=== PATIENT | male | born 1960 | race Hispanic/Latino ===

== ENCOUNTER → 2021-06-07 | Day surgery (SDC) | payer MEDICARE ==
[~2021-06-07] MED LIST: ACETAMINOPHEN-1 EAC4 PO; ALBUTEROL0.63 MG/3 NEB; AMITRIPTYLINE H10 MG PO; ASPIRIN81 MG PO; ATORVASTATIN CA20 MG PO; ATROPINE SULFATE 1 MG/ML VIAL ONE; BUPIVACAINE HCL 0.5% INJ 30 ML VIAL INJ ONE; CARVEDILOL6.25 MG PO; CLINDAMYCIN HC300 MG PO; CLOPIDOGREL75 MG PO; COLACE100 MG PO; DEXAMETHASONE SOD PHOS INJ 4 MG/ML SDV ONE; FENTANYL CITRATE/PF 100MCG/2 ML INJ ONE; KETOROLAC TROMETHAMINE 30 MG/ML VIAL ONE; LEVEMIR100 UNIT/1 SC; LIDOCAINE HCL 2% LOCAL INJ 5 ML SDV VIAL INJ ONE; MUPIROCIN 2% OINT 22 GM TUBE ONE; ONDANSETRON HCL INJ 2MG/ML 2ML 2 MG/ML VIAL ONE; POVIDONE IODINE 0.05% 0.05 % ML PO ONE; PROPOFOL IV EMULSION 10 MG/ML 20 ML VIAL ONE; PROTONIX20 MG PO; RENAGEL800 MG PO; RETACRIT2000 UNIT/ SC; SEVOFLURANE INHAL SOLN 250 ML PEN BTL ONE; SODIUM CHLORIDE 0.9% 500ML 500 ML ONE; SODIUM CHLORIDE 0.9% 50ML 50 ML ONE; TRADJENTA5 MG PO
[2021-06-07 08:43] LABS: BASOPHILS % 0.3 % (0.0-1.0); EOSINOPHILS # (AUTO) 0.2 (0.0-0.4); EOSINOPHILS % 2.7 % (0.0-6.0); HEMATOCRIT 26.1 % (38.2-49.6); LYMPHOCYTES # (AUTO) 1.2 (1.0-3.2); LYMPHOCYTES % 19.9 % (18.0-39.1); MEAN CORPUSCULAR HEMOGLOBIN 31.7 pg (28-32); MEAN CORPUSCULAR HGB CONC 30.7 g/dL (31-35); MEAN CORPUSCULAR VOLUME 103.6 fL (81-99); MONOCYTES # (AUTO) 0.6 (0.2-0.8); MONOCYTES % 9.8 % (4.4-11.3); NEUTROPHILS # (AUTO) 3.9 (2.1-6.9); PLATELET COUNT 168 x10e3/uL (140-360); RED BLOOD COUNT 2.52 x10e6/uL (4.3-5.7); RED CELL DISTRIBUTION WIDTH 16.5 % (11.7-14.4)
[2021-06-07 09:01] LABS: ANION GAP 16.8 mmol/L (8-16); CALCIUM 8.2 mg/dL (8.4-10.2); CREATININE, SERUM 4.18 mg/dL (0.72-1.25); POTASSIUM 4.8 mmol/L (3.5-5.1)
[2021-06-07 09:02] LABS: INR 1.03; PROTHROMBIN TIME 14.4 seconds (11.9-14.5)
[2021-06-07 09:03] LABS: PARTIAL THROMBOPLASTIN TIME 45.5 seconds (23.8-35.5)
[2021-06-07 13:02] VITALS: BP 112/67
== END | disposition home or self-care (01) ==
LOC: OR 07:20
PROVIDERS: ATTEND Plastic Surgery
DX: I96 Gangrene, not elsewhere classified (principal); M86.141 Other acute osteomyelitis, right hand; M86.641 Other chronic osteomyelitis, right hand; G47.33 Obstructive sleep apnea (adult) (pediatric); E11.22 Type 2 diabetes mellitus with diabetic chronic kidney disease; I12.0 Hypertensive chronic kidney disease with stage 5 chronic kidney disease or end stage renal disease; N18.6 End stage renal disease; I69.354 Hemiplegia and hemiparesis following cerebral infarction affecting left non-dominant side; I25.810 Atherosclerosis of coronary artery bypass graft(s) without angina pectoris; I25.2 Old myocardial infarction; K21.9 Gastro-esophageal reflux disease without esophagitis; Z88.8 Allergy status to other drugs, medicaments and biological substances; Z88.6 Allergy status to analgesic agent; Z91.013 Allergy to seafood; Z99.2 Dependence on renal dialysis; Z79.02 Long term (current) use of antithrombotics/antiplatelets; Z79.82 Long term (current) use of aspirin; Z79.4 Long term (current) use of insulin; Z79.899 Other long term (current) drug therapy; Z95.1 Presence of aortocoronary bypass graft
CPT/HCPCS: 26910 ×2; 26952; 36415; 71046; 80048; 82948; 85025; 85610; 85730; 88305; 88311; J0461; J0690; J1100; J1885; J2001; J2405; J2704; J3010; J7040; 88304; 88307

== ENCOUNTER → 2021-08-07 | Day surgery (SDC) | payer MEDICARE ==
[~2021-08-07] MED LIST changes: -ATROPINE SULFATE 1 MG/ML VIAL ONE; +BUMETANIDE1 MG PO; +CYMBALTA30 MG PO; -DEXAMETHASONE SOD PHOS INJ 4 MG/ML SDV ONE; +HYDROCODON-ACE1 EAC9 PO; -KETOROLAC TROMETHAMINE 30 MG/ML VIAL ONE; -LIDOCAINE HCL 2% LOCAL INJ 5 ML SDV VIAL INJ ONE; +MIDAZOLAM HCL 2 MG/2 ML VIAL ONE; -ONDANSETRON HCL INJ 2MG/ML 2ML 2 MG/ML VIAL ONE; +PERCOCET 10-321 EACH PO; +RENVELA0.8 GM PO; -SEVOFLURANE INHAL SOLN 250 ML PEN BTL ONE; -SODIUM CHLORIDE 0.9% 500ML 500 ML ONE; -SODIUM CHLORIDE 0.9% 50ML 50 ML ONE
[2021-08-07 06:42] LABS: BASOPHILS % 0.4 % (0.0-1.0); EOSINOPHILS # (AUTO) 0.3 (0.0-0.4); EOSINOPHILS % 4.9 % (0.0-6.0); HEMATOCRIT 35.6 % (38.2-49.6); HEMOGLOBIN 11.5 g/dL (14.0-18.0); LYMPHOCYTES # (AUTO) 1.4 (1.0-3.2); LYMPHOCYTES % 20.7 % (18.0-39.1); MEAN CORPUSCULAR HEMOGLOBIN 33.9 pg (28-32); MEAN CORPUSCULAR HGB CONC 32.3 g/dL (31-35); MONOCYTES # (AUTO) 0.8 (0.2-0.8); MONOCYTES % 12.1 % (4.4-11.3); NEUTROPHILS # (AUTO) 4.2 (2.1-6.9); NEUTROPHILS % 61.8 % (38.7-80.0); PLATELET COUNT 148 x10e3/uL (140-360); RED BLOOD COUNT 3.39 x10e6/uL (4.3-5.7); RED CELL DISTRIBUTION WIDTH 14.6 % (11.7-14.4)
[2021-08-07 06:55] LABS: INR 1.05; PROTHROMBIN TIME 14.6 seconds (11.9-14.5)
[2021-08-07 06:56] LABS: PARTIAL THROMBOPLASTIN TIME 34.4 seconds (23.8-35.5)
[2021-08-07 07:03] LABS: ANION GAP 19.7 mmol/L (8-16); CALCIUM 9.2 mg/dL (8.4-10.2); CREATININE, SERUM 5.5 mg/dL (0.72-1.25); POTASSIUM 4.7 mmol/L (3.5-5.1)
[2021-08-07] MEDS: SODIUM CHLORIDE 0.9% 500ML 500 ML ONE (07:04)
[2021-08-07 08:10] VITALS: BP 149/70
== END | disposition home or self-care (01) ==
LOC: OR 05:55
PROVIDERS: ATTEND Plastic Surgery
DX: E11.52 Type 2 diabetes mellitus with diabetic peripheral angiopathy with gangrene (principal); I70.268 Atherosclerosis of native arteries of extremities with gangrene, other extremity; M86.141 Other acute osteomyelitis, right hand; M86.641 Other chronic osteomyelitis, right hand; L98.494 Non-pressure chronic ulcer of skin of other sites with necrosis of bone; I25.10 Atherosclerotic heart disease of native coronary artery without angina pectoris; E11.22 Type 2 diabetes mellitus with diabetic chronic kidney disease; I13.2 Hypertensive heart and chronic kidney disease with heart failure and with stage 5 chronic kidney disease, or end stage renal disease; I50.9 Heart failure, unspecified; N18.6 End stage renal disease; Z79.4 Long term (current) use of insulin; Z79.84 Long term (current) use of oral hypoglycemic drugs; Z99.2 Dependence on renal dialysis; Z01.810 Encounter for preprocedural cardiovascular examination; Z86.73 Personal history of transient ischemic attack (TIA), and cerebral infarction without residual deficits; Z79.02 Long term (current) use of antithrombotics/antiplatelets; Z79.82 Long term (current) use of aspirin; Z79.899 Other long term (current) drug therapy
CPT/HCPCS: 36415; 80048; 82948; 85025; 85610; 85730; 88304; 88305; 88311; 93005; J0690; J2250; J3010; J7040

== ENCOUNTER → 2021-08-30 | Day surgery (SDC) | payer MEDICARE ==
[~2021-08-30] MED LIST changes: +ACETAMINOPHEN 1000 MG/100 ML IV ONE; +BUPIVACAINE HCL 0.25% 10ML MPF VIAL INJ ONE; -BUPIVACAINE HCL 0.5% INJ 30 ML VIAL INJ ONE; -FENTANYL CITRATE/PF 100MCG/2 ML INJ ONE; +HYDROCODON-ACE1 EA11 PO; +LIDOCAINE HCL 2% LOCAL INJ 5 ML SDV VIAL INJ ONE; +ROPIVACAINE 0.5% 5 MG/ML 30 ML SDV ONE; +SODIUM CHLORIDE 0.9% 500ML 500 ML ONE
[2021-08-30 08:45] VITALS: BP 110/56
== END | disposition home or self-care (01) ==
LOC: OR 07:05
PROVIDERS: ATTEND Plastic Surgery
DX: I96 Gangrene, not elsewhere classified (principal); M65.841 Other synovitis and tenosynovitis, right hand; G47.33 Obstructive sleep apnea (adult) (pediatric); I69.851 Hemiplegia and hemiparesis following other cerebrovascular disease affecting right dominant side; I69.898 Other sequelae of other cerebrovascular disease; R29.810 Facial weakness; E78.5 Hyperlipidemia, unspecified; I25.810 Atherosclerosis of coronary artery bypass graft(s) without angina pectoris; E11.22 Type 2 diabetes mellitus with diabetic chronic kidney disease; I12.0 Hypertensive chronic kidney disease with stage 5 chronic kidney disease or end stage renal disease; N18.6 End stage renal disease; J98.11 Atelectasis; I51.7 Cardiomegaly; K21.9 Gastro-esophageal reflux disease without esophagitis; Z88.6 Allergy status to analgesic agent; Z88.8 Allergy status to other drugs, medicaments and biological substances; Z01.812 Encounter for preprocedural laboratory examination; Z20.822 Contact with and (suspected) exposure to COVID-19; Z79.82 Long term (current) use of aspirin; Z79.02 Long term (current) use of antithrombotics/antiplatelets; Z79.4 Long term (current) use of insulin; Z99.2 Dependence on renal dialysis; Z95.1 Presence of aortocoronary bypass graft; Z86.718 Personal history of other venous thrombosis and embolism
CPT/HCPCS: 26910; 36415; 82948; 84132; 87071; 87075; 87186; 87205; 88305; 88311; J0131; J0690; J2001; J2250; J2704; J2795; J7040; U0002; 88304

== ENCOUNTER → 2021-11-01 | Outpatient (CLI) | payer MEDICARE ==
[~2021-11-01] MED LIST changes: -ACETAMINOPHEN 1000 MG/100 ML IV ONE; +BUPIVACAINE 0.25% 30ML SDV ONE; -BUPIVACAINE HCL 0.25% 10ML MPF VIAL INJ ONE; -LIDOCAINE HCL 2% LOCAL INJ 5 ML SDV VIAL INJ ONE; +METHADONE HCL5 MG PO; -MIDAZOLAM HCL 2 MG/2 ML VIAL ONE; -POVIDONE IODINE 0.05% 0.05 % ML PO ONE; -PROPOFOL IV EMULSION 10 MG/ML 20 ML VIAL ONE; -ROPIVACAINE 0.5% 5 MG/ML 30 ML SDV ONE; -SODIUM CHLORIDE 0.9% 500ML 500 ML ONE
== END | disposition home or self-care (01) ==
LOC: OR 07:02 → EDSTATUS 08:30 → LAB 12:37
PROVIDERS: ATTEND Plastic Surgery
DX: M86.9 Osteomyelitis, unspecified (principal); Z01.812 Encounter for preprocedural laboratory examination; Z20.822 Contact with and (suspected) exposure to COVID-19; Z53.8 Procedure and treatment not carried out for other reasons
CPT/HCPCS: 0223U; 36415 ×2; 82948

== ENCOUNTER → 2021-11-08 | Day surgery (SDC) | payer MEDICARE ==
[~2021-11-08] MED LIST changes: +FENTANYL CITRATE/PF 100MCG/2 ML INJ ONE; +LIDOCAINE HCL 2% LOCAL INJ 5 ML SDV VIAL INJ ONE; +Morphine 2mg Syringe 2 MG/ML SYR ONE; +ONDANSETRON HCL INJ 2MG/ML 2ML 2 MG/ML VIAL ONE; +POVIDONE IODINE 0.05% 0.05 % ML PO ONE; +PROPOFOL IV EMULSION 10 MG/ML 20 ML VIAL ONE; +SEVOFLURANE INHAL SOLN 250 ML PEN BTL ONE; +SODIUM CHLORIDE 0.9% 500ML 500 ML ONE
[2021-11-08 07:43] LABS: BASOPHILS % 0.3 % (0.0-1.0); EOSINOPHILS # (AUTO) 0.3 (0.0-0.4); EOSINOPHILS % 2.6 % (0.0-6.0); HEMATOCRIT 47.5 % (38.2-49.6); HEMOGLOBIN 15.3 g/dL (14.0-18.0); LYMPHOCYTES # (AUTO) 1.5 (1.0-3.2); LYMPHOCYTES % 14.8 % (18.0-39.1); MEAN CORPUSCULAR HEMOGLOBIN 32.7 pg (28-32); MEAN CORPUSCULAR HGB CONC 32.2 g/dL (31-35); MEAN CORPUSCULAR VOLUME 101.5 fL (81-99); MONOCYTES # (AUTO) 1.1 (0.2-0.8); MONOCYTES % 10.5 % (4.4-11.3); NEUTROPHILS # (AUTO) 7.1 (2.1-6.9); NEUTROPHILS % 71.1 % (38.7-80.0); PLATELET COUNT 212 x10e3/uL (140-360); RED BLOOD COUNT 4.68 x10e6/uL (4.3-5.7); RED CELL DISTRIBUTION WIDTH 14.8 % (11.7-14.4)
[2021-11-08 07:59] LABS: INR 0.92; PROTHROMBIN TIME 13.2 seconds (11.9-14.5)
[2021-11-08 08:00] LABS: PARTIAL THROMBOPLASTIN TIME 30.7 seconds (23.8-35.5)
[2021-11-08 08:04] LABS: ANION GAP 18.8 mmol/L (8-16); CALCIUM 8.9 mg/dL (8.4-10.2); CREATININE, SERUM 6.12 mg/dL (0.72-1.25); POTASSIUM 4.8 mmol/L (3.5-5.1)
[2021-11-08 10:40] VITALS: BP 126/66
== END | disposition home or self-care (01) ==
LOC: OR 06:14
PROVIDERS: ATTEND Plastic Surgery
DX: M86.141 Other acute osteomyelitis, right hand (principal); M86.641 Other chronic osteomyelitis, right hand; I73.9 Peripheral vascular disease, unspecified; I25.2 Old myocardial infarction; E11.22 Type 2 diabetes mellitus with diabetic chronic kidney disease; I12.0 Hypertensive chronic kidney disease with stage 5 chronic kidney disease or end stage renal disease; N18.6 End stage renal disease; K21.9 Gastro-esophageal reflux disease without esophagitis; Z88.6 Allergy status to analgesic agent; Z01.812 Encounter for preprocedural laboratory examination; Z20.822 Contact with and (suspected) exposure to COVID-19; Z79.82 Long term (current) use of aspirin; Z79.4 Long term (current) use of insulin; Z79.02 Long term (current) use of antithrombotics/antiplatelets; Z79.899 Other long term (current) drug therapy; Z99.2 Dependence on renal dialysis; Z99.81 Dependence on supplemental oxygen; Z86.73 Personal history of transient ischemic attack (TIA), and cerebral infarction without residual deficits
CPT/HCPCS: 0223U; 26910; 36415 ×2; 80048; 82948; 85025; 85610; 85730; 88305; 88311; J0690; J2270; J3010; J7040; 88304; J2001; J2405

== ENCOUNTER → 2022-04-04 | Outpatient (CLI) | payer MEDICARE ==
[2022-04-02 11:34] LABS: BASOPHILS % 0.6 % (0.0-1.0); EOSINOPHILS # (AUTO) 0.4 (0.0-0.4); EOSINOPHILS % 7.6 % (0.0-6.0); HEMATOCRIT 48.2 % (38.2-49.6); HEMOGLOBIN 14.7 g/dL (14.0-18.0); LYMPHOCYTES # (AUTO) 1.2 (1.0-3.2); LYMPHOCYTES % 22.7 % (18.0-39.1); MEAN CORPUSCULAR HEMOGLOBIN 31.4 pg (28-32); MEAN CORPUSCULAR HGB CONC 30.5 g/dL (31-35); MONOCYTES # (AUTO) 0.7 (0.2-0.8); MONOCYTES % 13.4 % (4.4-11.3); NEUTROPHILS % 55.3 % (38.7-80.0); PLATELET COUNT 177 x10e3/uL (140-360); RED BLOOD COUNT 4.68 x10e6/uL (4.3-5.7); RED CELL DISTRIBUTION WIDTH 14.6 % (11.7-14.4)
[2022-04-02 11:51] LABS: ANION GAP 23.2 mmol/L (8-16); CALCIUM 8.6 mg/dL (8.4-10.2); CREATININE, SERUM 7.02 mg/dL (0.72-1.25); POTASSIUM 5.2 mmol/L (3.5-5.1)
[~2022-04-04] MED LIST changes: -BUPIVACAINE 0.25% 30ML SDV ONE; -FENTANYL CITRATE/PF 100MCG/2 ML INJ ONE; +ISOSORBIDE DINI20 MG PO; -LIDOCAINE HCL 2% LOCAL INJ 5 ML SDV VIAL INJ ONE; -MUPIROCIN 2% OINT 22 GM TUBE ONE; -Morphine 2mg Syringe 2 MG/ML SYR ONE; -ONDANSETRON HCL INJ 2MG/ML 2ML 2 MG/ML VIAL ONE; -POVIDONE IODINE 0.05% 0.05 % ML PO ONE; -PROPOFOL IV EMULSION 10 MG/ML 20 ML VIAL ONE; -SEVOFLURANE INHAL SOLN 250 ML PEN BTL ONE; -SODIUM CHLORIDE 0.9% 500ML 500 ML ONE
== END ==
LOC: RAD 07:30 → EDSTATUS 09:30
PROVIDERS: ATTEND Plastic Surgery
DX: Z01.818 Encounter for other preprocedural examination (principal); L60.0 Ingrowing nail; I96 Gangrene, not elsewhere classified; Z53.8 Procedure and treatment not carried out for other reasons
CPT/HCPCS: 36415; 80048; 85025; 93005

== ENCOUNTER → 2022-05-16 | Day surgery (SDC) | payer MEDICARE ==
[~2022-05-16] MED LIST changes: +BUPIVACAINE HCL 0.5% INJ 30 ML VIAL INJ ONE; +EPHEDRINE SULFATE INJ 50 MG/ML VIAL ONE; +FENTANYL CITRATE/PF 100MCG/2 ML INJ ONE; +LIDOCAINE 2%/ EPINEPHRINE 20ML MDV ONE; +LIDOCAINE HCL 2% LOCAL INJ 5 ML SDV VIAL INJ ONE; +MIDAZOLAM HCL 2 MG/2 ML VIAL ONE; +MUPIROCIN 2% OINT 22 GM TUBE ONE; +ONDANSETRON HCL INJ 2MG/ML 2ML 2 MG/ML VIAL ONE; +POVIDONE IODINE 0.05% 0.05 % ML PO ONE; +PROPOFOL IV EMULSION 10 MG/ML 20 ML VIAL ONE; +SEVOFLURANE INHAL SOLN 250 ML PEN BTL ONE; +SODIUM CHLORIDE 0.9% 500ML 500 ML ONE
[2022-05-16 07:44] LABS: BASOPHILS # (AUTO) 0.1 (0.0-0.1); BASOPHILS % 0.5 % (0.0-1.0); EOSINOPHILS # (AUTO) 0.2 (0.0-0.4); EOSINOPHILS % 1.7 % (0.0-6.0); HEMATOCRIT 52.2 % (38.2-49.6); HEMOGLOBIN 15.8 g/dL (14.0-18.0); LYMPHOCYTES % 20.8 % (18.0-39.1); MEAN CORPUSCULAR HEMOGLOBIN 31.5 pg (28-32); MEAN CORPUSCULAR HGB CONC 30.3 g/dL (31-35); MEAN CORPUSCULAR VOLUME 104.2 fL (81-99); MONOCYTES # (AUTO) 1.1 (0.2-0.8); MONOCYTES % 10.9 % (4.4-11.3); NEUTROPHILS # (AUTO) 6.3 (2.1-6.9); NEUTROPHILS % 65.5 % (38.7-80.0); PLATELET COUNT 190 x10e3/uL (140-360); RED BLOOD COUNT 5.01 x10e6/uL (4.3-5.7); RED CELL DISTRIBUTION WIDTH 16.7 % (11.7-14.4)
[2022-05-16 07:55] LABS: INR 1.01; PROTHROMBIN TIME 13.5 seconds (11.9-14.5)
[2022-05-16 08:05] LABS: ANION GAP 22.2 mmol/L (8-16); CREATININE, SERUM 5.63 mg/dL (0.72-1.25); POTASSIUM 5.2 mmol/L (3.5-5.1)
[2022-05-16 10:55] VITALS: BP 97/60
== END | disposition home or self-care (01) ==
LOC: OR 06:53
PROVIDERS: ATTEND Plastic Surgery
DX: I96 Gangrene, not elsewhere classified (principal); M86.9 Osteomyelitis, unspecified; L60.0 Ingrowing nail; G47.33 Obstructive sleep apnea (adult) (pediatric); E11.22 Type 2 diabetes mellitus with diabetic chronic kidney disease; I12.0 Hypertensive chronic kidney disease with stage 5 chronic kidney disease or end stage renal disease; N18.6 End stage renal disease; K21.9 Gastro-esophageal reflux disease without esophagitis; I25.810 Atherosclerosis of coronary artery bypass graft(s) without angina pectoris; E78.5 Hyperlipidemia, unspecified; I69.351 Hemiplegia and hemiparesis following cerebral infarction affecting right dominant side; Z89.9 Acquired absence of limb, unspecified; Z88.6 Allergy status to analgesic agent; Z91.013 Allergy to seafood; Z79.02 Long term (current) use of antithrombotics/antiplatelets; Z79.82 Long term (current) use of aspirin; Z79.4 Long term (current) use of insulin; Z79.84 Long term (current) use of oral hypoglycemic drugs; Z79.899 Other long term (current) drug therapy; Z95.1 Presence of aortocoronary bypass graft; Z95.5 Presence of coronary angioplasty implant and graft; Z86.16 Personal history of COVID-19
CPT/HCPCS: 11750; 26951; 36415; 80048; 82948; 85025; 85610; 85730; 88305; 88311; 93005; J0690; J2001; J2250; J2405; J2704; J3010; J7040; 88304

== ENCOUNTER 2022-07-29 13:24 | Inpatient (IN) | payer MEDICARE ==
[~2022-07-29] VITALS: Ht 165.1 cm; Wt 68.0 kg
[~2022-07-29 13:24] MED LIST changes: -BUPIVACAINE HCL 0.5% INJ 30 ML VIAL INJ ONE; -EPHEDRINE SULFATE INJ 50 MG/ML VIAL ONE; -FENTANYL CITRATE/PF 100MCG/2 ML INJ ONE; -LIDOCAINE 2%/ EPINEPHRINE 20ML MDV ONE; -LIDOCAINE HCL 2% LOCAL INJ 5 ML SDV VIAL INJ ONE; -MIDAZOLAM HCL 2 MG/2 ML VIAL ONE; -MUPIROCIN 2% OINT 22 GM TUBE ONE; -ONDANSETRON HCL INJ 2MG/ML 2ML 2 MG/ML VIAL ONE; -POVIDONE IODINE 0.05% 0.05 % ML PO ONE; -PROPOFOL IV EMULSION 10 MG/ML 20 ML VIAL ONE; -SEVOFLURANE INHAL SOLN 250 ML PEN BTL ONE; -SODIUM CHLORIDE 0.9% 500ML 500 ML ONE
[2022-07-29] MEDS ORDERED: Vancomycin IV 1 GM in SODIUM CHLORIDE 0.9% 250ML 250 ML IV ONE (13:45)
[2022-07-29] MEDS ORDERED: SODIUM CHLORIDE FLUSH 10 ML SYR INJ PRN (13:45)
[2022-07-29] MEDS: ONDANSETRON HCL INJ 2MG/ML 2ML 2 MG/ML VIAL IV PRN (15:06)
[2022-07-29 15:07] LABS: BASOPHILS # (AUTO) 0.1 (0.0-0.1); BASOPHILS % 0.3 % (0.0-1.0); EOSINOPHILS # (AUTO) 0.1 (0.0-0.4); EOSINOPHILS % 0.9 % (0.0-6.0); HEMATOCRIT 42.9 % (38.2-49.6); HEMOGLOBIN 13.8 g/dL (14.0-18.0); LYMPHOCYTES # (AUTO) 0.7 (1.0-3.2); LYMPHOCYTES % 4.7 % (18.0-39.1); MEAN CORPUSCULAR HEMOGLOBIN 31.2 pg (28-32); MEAN CORPUSCULAR HGB CONC 32.2 g/dL (31-35); MEAN CORPUSCULAR VOLUME 97.1 fL (81-99); MONOCYTES % 6.5 % (4.4-11.3); NEUTROPHILS # (AUTO) 13.2 (2.1-6.9); NEUTROPHILS % 86.7 % (38.7-80.0); PLATELET COUNT 191 x10e3/uL (140-360); RED BLOOD COUNT 4.42 x10e6/uL (4.3-5.7)
[2022-07-29 15:33] LABS: ALANINE AMINOTRANSFERASE 9 IU/L (0-55); ALBUMIN/GLOBULIN RATIO 0.7 (0.8-2.0); ALKALINE PHOSPHATASE 73 IU/L (40-150); ANION GAP 34.7 mmol/L (8-16); BLOOD UREA NITROGEN 93 mg/dL (7-26); BUN/CREATININE RATIO 9 (6-25); CALCIUM 9.1 mg/dL (8.4-10.2); CARBON DIOXIDE 13 mmol/L (22-29); CHLORIDE 90 mmol/L (98-107); CREATININE, SERUM 10.48 mg/dL (0.72-1.25); GLUCOSE 115 mg/dL (74-118); SODIUM 130 mmol/L (136-145)
[2022-07-29 15:35] LABS: POTASSIUM 7.7 mmol/L (3.5-5.1)
[2022-07-29] MEDS ORDERED: ALBUTEROL SULF 0.083% NEB SOLN 3 ML NEB NEB STA (15:41)
[2022-07-29] MEDS ORDERED: SODIUM BICARBONATE 8.4% INJ 50 ML SYR IV STA (15:41)
[2022-07-29] MEDS ORDERED: DEXTROSE 50% SYRINGE 50 ML IV STA (15:41)
[2022-07-29] MEDS ORDERED: INSULIN REGULAR, HUMAN 100 UNIT/1 ML IV ONE (15:45)
[2022-07-29] MEDS ORDERED: SOD POLYSTYRENE SULFONATE SUSP 15 GM/60 ML BTL PO ONE (15:45)
[2022-07-29] MEDS ORDERED: CALCIUM GLUCONATE 10% INJ 13.95 MEQ in SODIUM CHLORIDE 0.9% 100 ML IV ONE (15:45)
[2022-07-29] MEDS ORDERED: SODIUM CHLORIDE 0.9% 1000ML 2,000 ML ONE (16:59)
[2022-07-29] MEDS ORDERED: HYDROCODONE/APAP 5MG-325MG TAB PO PRN (21:30)
[2022-07-29 22:47] VITALS: BP 146/92
[2022-07-30] VITALS (7 sets, daily range): BP systolic 93–156; BP diastolic 54–86
[2022-07-30] MEDS: HYDROCODONE/APAP 10MG-325MG TAB PO PRN ×3 (02:32→11:55)
[2022-07-30] MEDS ORDERED: SODIUM CHLORIDE 0.9% 250ML 250 ML ONE (02:35)
[2022-07-30 06:44] LABS: BASOPHILS # (AUTO) 0.1 (0.0-0.1); BASOPHILS % 0.4 % (0.0-1.0); EOSINOPHILS # (AUTO) 0.3 (0.0-0.4); EOSINOPHILS % 2.1 % (0.0-6.0); HEMATOCRIT 42.9 % (38.2-49.6); LYMPHOCYTES # (AUTO) 0.6 (1.0-3.2); MEAN CORPUSCULAR HEMOGLOBIN 31.2 pg (28-32); MEAN CORPUSCULAR HGB CONC 32.6 g/dL (31-35); MEAN CORPUSCULAR VOLUME 95.5 fL (81-99); MONOCYTES # (AUTO) 1.2 (0.2-0.8); MONOCYTES % 7.4 % (4.4-11.3); NEUTROPHILS # (AUTO) 13.6 (2.1-6.9); NEUTROPHILS % 85.1 % (38.7-80.0); PLATELET COUNT 212 x10e3/uL (140-360); RED BLOOD COUNT 4.49 x10e6/uL (4.3-5.7)
[2022-07-30 07:25] LABS: ALBUMIN/GLOBULIN RATIO 0.7 (0.8-2.0); ANION GAP 31.5 mmol/L (8-16); CALCIUM 9.4 mg/dL (8.4-10.2); CREATININE, SERUM 8.25 mg/dL (0.72-1.25); POTASSIUM 4.5 mmol/L (3.5-5.1)
[2022-07-30] MEDS ORDERED: CARVEDILOL12.5 MG PO (09:21)
[2022-07-30] MEDS ORDERED: AURYXIA210 MG PO (09:21)
[2022-07-30] MEDS ORDERED: BUMETANIDE2 MG PO (09:21)
[2022-07-30] MEDS ORDERED: TRADJENTA5 MG PO (09:21)
[2022-07-30] MEDS ORDERED: AMITRIPTYLINE H10 MG PO (09:21)
[2022-07-30] MEDS ORDERED: CYMBALTA30 MG PO (09:21)
[2022-07-30] MEDS ORDERED: NITROGLYCERIN0.4 MG SL (09:21)
[2022-07-30] MEDS ORDERED: IBUPROFEN200 MG PO (09:21)
[2022-07-30] MEDS ORDERED: NOVOLOG MI100 UNIT/1 SC (09:21)
[2022-07-30] MEDS: Morphine 4mg INJECTION 4 MG/ML INJ IV PRN ×3 (09:56→21:37)
[2022-07-30] MEDS: ONDANSETRON HCL INJ 2MG/ML 2ML 2 MG/ML VIAL IV PRN ×2 (09:56→21:37)
[2022-07-30] MEDS ORDERED: SEVELAMER CARBONATE 800 MG TAB PO SCH (11:30)
[2022-07-30] MEDS: PANTOPRAZOLE SOD 40 MG TABEC PO SCH (11:51)
[2022-07-30] MEDS: CELECOXIB 100 MG CAP PO SCH ×2 (11:51→17:26)
[2022-07-30] MEDS: SEVELAMER CARBONATE 800 MG TAB PO SCH ×2 (11:55→17:27)
[2022-07-30] MEDS ORDERED: SODIUM CHLORIDE 0.9% IV SCH (15:00)
[2022-07-30] MEDS ORDERED: VANCOMYCIN IV SCH (15:00)
[2022-07-30] MEDS: CARVEDILOL 12.5 MG TAB PO SCH (17:00)
[2022-07-30] MEDS ORDERED: ISOSORBIDE DINITRATE 20 MG TAB PO SCH (17:00)
[2022-07-30] MEDS: AMITRIPTYLINE HCL 10 MG TAB PO SCH (17:26)
[2022-07-30] MEDS: DULOXETINE HCL 30 MG DELAYED RELEASE PO SCH (17:27)
[2022-07-30] MEDS: ATORVASTATIN 40 MG TAB PO SCH (21:15)
[2022-07-31] VITALS (8 sets, daily range): BP systolic 102–125; BP diastolic 61–87
[2022-07-31] MEDS: Morphine 4mg INJECTION 4 MG/ML INJ IV PRN (02:02)
[2022-07-31] MEDS: ONDANSETRON HCL INJ 2MG/ML 2ML 2 MG/ML VIAL IV PRN ×2 (02:02→10:30)
[2022-07-31] MEDS ORDERED: ACETAMINOPHEN 1000 MG/100 ML 100 ML IV ONE (06:35)
[2022-07-31] MEDS ORDERED: MUPIROCIN 2% OINT 22 GM TUBE ONE (06:48)
[2022-07-31] MEDS ORDERED: BUPIVACAINE HCL 0.5% INJ 30 ML VIAL INJ ONE (06:49)
[2022-07-31] MEDS: SEVELAMER CARBONATE 800 MG TAB PO SCH ×3 (08:00→17:01)
[2022-07-31] MEDS: CELECOXIB 100 MG CAP PO SCH ×3 (08:00→16:56)
[2022-07-31] MEDS ORDERED: SODIUM CHLORIDE 0.9% 1000ML 2,000 ML ONE (08:57)
[2022-07-31] MEDS: AMITRIPTYLINE HCL 10 MG TAB PO SCH ×3 (09:00→16:58)
[2022-07-31] MEDS: CARVEDILOL 12.5 MG TAB PO SCH ×2 (09:00→16:58)
[2022-07-31] MEDS: DULOXETINE HCL 30 MG DELAYED RELEASE PO SCH ×2 (11:14→16:58)
[2022-07-31] MEDS: PANTOPRAZOLE SOD 40 MG TABEC PO SCH (11:14)
[2022-07-31] MEDS: HYDROCODONE/APAP 10MG-325MG TAB PO PRN ×2 (11:28→17:00)
[2022-07-31] MEDS ORDERED: PROPOFOL IV EMULSION 10 MG/ML 20 ML VIAL ONE (12:40)
[2022-07-31] MEDS ORDERED: SEVOFLURANE INHAL SOLN 250 ML PEN BTL ONE (12:40)
[2022-07-31] MEDS ORDERED: POVIDONE IODINE 0.05% 0.05 % ML PO ONE (12:40)
[2022-07-31] MEDS ORDERED: LIDOCAINE HCL 2% LOCAL INJ 5 ML SDV VIAL INJ ONE (12:40)
[2022-07-31] MEDS ORDERED: ONDANSETRON HCL INJ 2MG/ML 2ML 2 MG/ML VIAL ONE (12:40)
[2022-07-31] MEDS: BALSAM PERU/CASTOR OIL 60 GM OINT...G. TP SCH (16:55)
[2022-07-31] MEDS ORDERED: Vancomycin IV 1 GM in SODIUM CHLORIDE 0.9% 250ML 250 ML IV SCH (18:00)
[2022-07-31] MEDS: ATORVASTATIN 40 MG TAB PO SCH (22:00)
[2022-08-01] VITALS (8 sets, daily range): BP systolic 99–131; BP diastolic 41–90
[2022-08-01] MEDS: HYDROCODONE/APAP 10MG-325MG TAB PO PRN ×5 (02:51→21:23)
[2022-08-01] MEDS: CARVEDILOL 12.5 MG TAB PO SCH ×2 (08:33→17:00)
[2022-08-01] MEDS: AMITRIPTYLINE HCL 10 MG TAB PO SCH ×2 (08:33→18:06)
[2022-08-01] MEDS: PANTOPRAZOLE SOD 40 MG TABEC PO SCH (08:34)
[2022-08-01] MEDS: CELECOXIB 100 MG CAP PO SCH ×2 (08:34→18:06)
[2022-08-01] MEDS: SEVELAMER CARBONATE 800 MG TAB PO SCH ×3 (08:34→18:06)
[2022-08-01] MEDS: DULOXETINE HCL 30 MG DELAYED RELEASE PO SCH ×2 (08:34→18:06)
[2022-08-01] MEDS ORDERED: LOSARTAN POTASS25 MG PO (12:51)
[2022-08-01] MEDS ORDERED: SPIRONOLACTONE25 MG PO (12:51)
[2022-08-01] MEDS: Morphine 4mg INJECTION 4 MG/ML INJ IV PRN (13:53)
[2022-08-01] MEDS: BALSAM PERU/CASTOR OIL 60 GM OINT...G. TP SCH (15:55)
[2022-08-01] MEDS: ATORVASTATIN 40 MG TAB PO SCH (21:23)
[2022-08-02] VITALS (8 sets, daily range): BP systolic 112–157; BP diastolic 73–88
[2022-08-02] MEDS: HYDROCODONE/APAP 10MG-325MG TAB PO PRN ×2 (02:46→18:04)
[2022-08-02] MEDS: ONDANSETRON HCL INJ 2MG/ML 2ML 2 MG/ML VIAL IV PRN ×2 (05:37→16:18)
[2022-08-02] MEDS: DULOXETINE HCL 30 MG DELAYED RELEASE PO SCH ×2 (08:14→16:52)
[2022-08-02] MEDS: CARVEDILOL 12.5 MG TAB PO SCH ×2 (08:14→16:52)
[2022-08-02] MEDS: SEVELAMER CARBONATE 800 MG TAB PO SCH ×3 (08:14→16:52)
[2022-08-02] MEDS: AMITRIPTYLINE HCL 10 MG TAB PO SCH ×2 (08:14→16:52)
[2022-08-02] MEDS: PANTOPRAZOLE SOD 40 MG TABEC PO SCH (08:14)
[2022-08-02] MEDS: CELECOXIB 100 MG CAP PO SCH ×2 (08:14→16:52)
[2022-08-02] MEDS ORDERED: SODIUM CHLORIDE 0.9% 1000ML 1,000 ML ONE (09:10)
[2022-08-02 16:48] LABS: BASOPHILS # (AUTO) 0.1 (0.0-0.1); BASOPHILS % 0.3 % (0.0-1.0); EOSINOPHILS # (AUTO) 0.3 (0.0-0.4); HEMATOCRIT 40.1 % (38.2-49.6); HEMOGLOBIN 12.7 g/dL (14.0-18.0); LYMPHOCYTES # (AUTO) 0.5 (1.0-3.2); LYMPHOCYTES % 3.4 % (18.0-39.1); MEAN CORPUSCULAR HEMOGLOBIN 30.3 pg (28-32); MEAN CORPUSCULAR HGB CONC 31.7 g/dL (31-35); MEAN CORPUSCULAR VOLUME 95.7 fL (81-99); MONOCYTES % 6.2 % (4.4-11.3); NEUTROPHILS # (AUTO) 13.7 (2.1-6.9); NEUTROPHILS % 86.5 % (38.7-80.0); PLATELET COUNT 184 x10e3/uL (140-360); RED BLOOD COUNT 4.19 x10e6/uL (4.3-5.7)
[2022-08-02 17:06] LABS: ANION GAP 26.5 mmol/L (8-16); CALCIUM 9.5 mg/dL (8.4-10.2); CREATININE, SERUM 6.2 mg/dL (0.72-1.25); POTASSIUM 4.5 mmol/L (3.5-5.1)
[2022-08-02] MEDS: ATORVASTATIN 40 MG TAB PO SCH (20:47)
[2022-08-03] VITALS (7 sets, daily range): BP systolic 106–152; BP diastolic 44–90
[2022-08-03] MEDS: HYDROCODONE/APAP 10MG-325MG TAB PO PRN (04:01)
[2022-08-03] MEDS: PANTOPRAZOLE SOD 40 MG TABEC PO SCH (09:15)
[2022-08-03] MEDS: DULOXETINE HCL 30 MG DELAYED RELEASE PO SCH ×2 (09:15→16:28)
[2022-08-03] MEDS: CELECOXIB 100 MG CAP PO SCH (09:15)
[2022-08-03] MEDS: AMITRIPTYLINE HCL 10 MG TAB PO SCH (09:16)
[2022-08-03] MEDS: CARVEDILOL 12.5 MG TAB PO SCH ×2 (09:16→16:29)
[2022-08-03] MEDS: BALSAM PERU/CASTOR OIL 60 GM OINT...G. TP SCH ×2 (09:18→09:27)
[2022-08-03] MEDS: SEVELAMER CARBONATE 800 MG TAB PO SCH ×3 (09:18→16:48)
[2022-08-03] MEDS: MUPIROCIN 2% OINT 22 GM TUBE TOP SCH (09:25)
[2022-08-03] MEDS: CLOPIDOGREL BISULFATE 75 MG TAB PO SCH (11:29)
[2022-08-03] MEDS: ASPIRIN 81 MG CHEW TAB PO SCH (11:29)
[2022-08-03] MEDS: KETOROLAC TROMETHAMINE 30 MG/ML VIAL IV PRN (14:32)
[2022-08-03] MEDS: ATORVASTATIN 40 MG TAB PO SCH (21:00)
[2022-08-04] VITALS (7 sets, daily range): BP systolic 105–124; BP diastolic 50–88
[2022-08-04] MEDS: PANTOPRAZOLE SOD 40 MG TABEC PO SCH (07:30)
[2022-08-04] MEDS: SEVELAMER CARBONATE 800 MG TAB PO SCH ×3 (08:00→16:29)
[2022-08-04] MEDS: DULOXETINE HCL 30 MG DELAYED RELEASE PO SCH ×2 (08:46→16:29)
[2022-08-04] MEDS: BALSAM PERU/CASTOR OIL 60 GM OINT...G. TP SCH (08:46)
[2022-08-04] MEDS: ASPIRIN 81 MG CHEW TAB PO SCH (08:46)
[2022-08-04] MEDS: MUPIROCIN 2% OINT 22 GM TUBE TOP SCH (08:46)
[2022-08-04] MEDS: CLOPIDOGREL BISULFATE 75 MG TAB PO SCH (08:46)
[2022-08-04] MEDS: CARVEDILOL 12.5 MG TAB PO SCH ×2 (09:00→17:00)
[2022-08-04] MEDS: DEXTROSE 50% SYRINGE 50 ML IV PRN (10:26)
[2022-08-04] MEDS ORDERED: DEXTROSE 5%/0.9% SOD CHL 1,000 ML IV ONE (10:45)
[2022-08-04 14:52] LABS: BASOPHILS # (AUTO) 0.1 (0.0-0.1); BASOPHILS % 0.7 % (0.0-1.0); EOSINOPHILS # (AUTO) 0.3 (0.0-0.4); EOSINOPHILS % 2.6 % (0.0-6.0); HEMATOCRIT 37.7 % (38.2-49.6); HEMOGLOBIN 11.7 g/dL (14.0-18.0); LYMPHOCYTES # (AUTO) 0.6 (1.0-3.2); LYMPHOCYTES % 4.5 % (18.0-39.1); MEAN CORPUSCULAR HEMOGLOBIN 30.8 pg (28-32); MEAN CORPUSCULAR VOLUME 99.2 fL (81-99); MONOCYTES # (AUTO) 0.9 (0.2-0.8); MONOCYTES % 6.8 % (4.4-11.3); NEUTROPHILS # (AUTO) 10.5 (2.1-6.9); NEUTROPHILS % 83.8 % (38.7-80.0); PLATELET COUNT 158 x10e3/uL (140-360); RED CELL DISTRIBUTION WIDTH 14.7 % (11.7-14.4)
[2022-08-04] MEDS: ATORVASTATIN 40 MG TAB PO SCH (21:00)
[2022-08-05] VITALS (8 sets, daily range): BP systolic 122–146; BP diastolic 76–87
[2022-08-05] MEDS: PANTOPRAZOLE SOD 40 MG TABEC PO SCH (07:30)
[2022-08-05] MEDS: SEVELAMER CARBONATE 800 MG TAB PO SCH ×3 (07:49→17:00)
[2022-08-05] MEDS: CARVEDILOL 12.5 MG TAB PO SCH ×2 (08:57→17:00)
[2022-08-05] MEDS: ASPIRIN 81 MG CHEW TAB PO SCH (08:57)
[2022-08-05] MEDS: MEROPENEM 1 GM in SODIUM CHLORIDE 0.9% 100 ML IV SCH (08:57)
[2022-08-05] MEDS: DULOXETINE HCL 30 MG DELAYED RELEASE PO SCH ×2 (08:58→17:00)
[2022-08-05] MEDS: CLOPIDOGREL BISULFATE 75 MG TAB PO SCH (08:58)
[2022-08-05] MEDS: BALSAM PERU/CASTOR OIL 60 GM OINT...G. TP SCH (08:58)
[2022-08-05] MEDS: MUPIROCIN 2% OINT 22 GM TUBE TOP SCH (08:58)
[2022-08-05] MEDS ORDERED: SODIUM CHLORIDE 0.9% 1000ML 2,000 ML ONE (09:33)
[2022-08-05 10:02] LABS: BASOPHILS # (AUTO) 0.1 (0.0-0.1); BASOPHILS % 0.7 % (0.0-1.0); EOSINOPHILS # (AUTO) 0.3 (0.0-0.4); EOSINOPHILS % 2.2 % (0.0-6.0); HEMATOCRIT 38.9 % (38.2-49.6); HEMOGLOBIN 11.6 g/dL (14.0-18.0); LYMPHOCYTES # (AUTO) 0.7 (1.0-3.2); LYMPHOCYTES % 5.7 % (18.0-39.1); MEAN CORPUSCULAR HEMOGLOBIN 30.6 pg (28-32); MEAN CORPUSCULAR HGB CONC 29.8 g/dL (31-35); MEAN CORPUSCULAR VOLUME 102.6 fL (81-99); MONOCYTES # (AUTO) 1.1 (0.2-0.8); MONOCYTES % 9.4 % (4.4-11.3); NEUTROPHILS # (AUTO) 9.7 (2.1-6.9); NEUTROPHILS % 80.3 % (38.7-80.0); PLATELET COUNT 142 x10e3/uL (140-360); RED BLOOD COUNT 3.79 x10e6/uL (4.3-5.7)
[2022-08-05 10:25] LABS: ANION GAP 22.6 mmol/L (8-16); CALCIUM 8.4 mg/dL (8.4-10.2); CREATININE, SERUM 9.99 mg/dL (0.72-1.25); POTASSIUM 5.6 mmol/L (3.5-5.1)
[2022-08-05 11:19] LABS: ALBUMIN 2.3 g/dL (3.5-5.0); BILIRUBIN,DIRECT 0.1 mg/dL (0.0-0.5)
[2022-08-05] MEDS: ATORVASTATIN 40 MG TAB PO SCH (19:58)
[2022-08-05] MEDS ORDERED: LEVETIRACETAM 500MG/5ML VIAL 1,500 MG in SODIUM CHLORIDE 0.9% 100 ML IV ONE (20:00)
[2022-08-05] MEDS: LACTULOSE SYRUP 20 GM/30 ML UDC RC SCH (21:54)
[2022-08-06] VITALS (26 sets, daily range): BP systolic 118–155; BP diastolic 72–98
[2022-08-06 05:58] LABS: INR 1.12; PROTHROMBIN TIME 14.9 seconds (11.9-14.5)
[2022-08-06] MEDS: CARVEDILOL 12.5 MG TAB PO SCH ×2 (09:00→17:00)
[2022-08-06] MEDS ORDERED: LEVETIRACETAM 500MG/5ML VIAL 500 MG in SODIUM CHLORIDE 0.9% 100 ML IV SCH (09:00)
[2022-08-06] MEDS: LACTULOSE SYRUP 20 GM/30 ML UDC RC SCH ×2 (09:46→17:00)
[2022-08-06] MEDS: MEROPENEM 1 GM in SODIUM CHLORIDE 0.9% 100 ML IV SCH (09:46)
[2022-08-06 10:12] LABS: BASOPHILS # (AUTO) 0.1 (0.0-0.1); BASOPHILS % 0.4 % (0.0-1.0); EOSINOPHILS # (AUTO) 0.2 (0.0-0.4); HEMATOCRIT 37.7 % (38.2-49.6); LYMPHOCYTES # (AUTO) 0.8 (1.0-3.2); MEAN CORPUSCULAR HEMOGLOBIN 30.5 pg (28-32); MEAN CORPUSCULAR HGB CONC 31.8 g/dL (31-35); MEAN CORPUSCULAR VOLUME 95.7 fL (81-99); MONOCYTES # (AUTO) 1.4 (0.2-0.8); MONOCYTES % 8.8 % (4.4-11.3); NEUTROPHILS # (AUTO) 13.2 (2.1-6.9); NEUTROPHILS % 82.8 % (38.7-80.0); PLATELET COUNT 169 x10e3/uL (140-360); RED BLOOD COUNT 3.94 x10e6/uL (4.3-5.7); RED CELL DISTRIBUTION WIDTH 14.8 % (11.7-14.4)
[2022-08-06 10:28] LABS: ANION GAP 22.2 mmol/L (8-16); CALCIUM 8.9 mg/dL (8.4-10.2); CREATININE, SERUM 7.98 mg/dL (0.72-1.25); POTASSIUM 5.2 mmol/L (3.5-5.1)
[2022-08-06] MEDS: LEVETIRACETAM 500MG/5ML VIAL 500 MG in SODIUM CHLORIDE 0.9% 100 ML IV SCH ×2 (12:19→22:18)
[2022-08-06] MEDS: DEXTROSE 50% SYRINGE 50 ML IV PRN ×2 (15:18→23:31)
[2022-08-06] MEDS: TRIMETHOPRIM/SULFAMETHOXAZOLE 160 MG in DEXTROSE 5% 250ML 250 ML IV SCH (15:18)
[2022-08-06 17:46] LABS: ABG PCO2 65 mmHg (35-45); ABG PH 7.25 (7.35-7.45)
[2022-08-06 17:47] LABS: ABG HCO3 29 mmol/L (22-26); ABG PO2 86 mmHg (80-105); ABG TCO2 31
[2022-08-06] MEDS: MUPIROCIN 2% OINT 22 GM TUBE TOP SCH (22:17)
[2022-08-06] MEDS: BALSAM PERU/CASTOR OIL 60 GM OINT...G. TP SCH (22:22)
[2022-08-07] VITALS (28 sets, daily range): BP systolic 96–145; BP diastolic 67–86
[2022-08-07] MEDS: KETOROLAC TROMETHAMINE 30 MG/ML VIAL IV PRN ×2 (00:40→14:31)
[2022-08-07 06:59] LABS: BASOPHILS # (AUTO) 0.1 (0.0-0.1); BASOPHILS % 0.4 % (0.0-1.0); EOSINOPHILS # (AUTO) 0.4 (0.0-0.4); EOSINOPHILS % 2.5 % (0.0-6.0); HEMATOCRIT 36.2 % (38.2-49.6); HEMOGLOBIN 11.6 g/dL (14.0-18.0); LYMPHOCYTES # (AUTO) 1.1 (1.0-3.2); LYMPHOCYTES % 6.8 % (18.0-39.1); MEAN CORPUSCULAR HEMOGLOBIN 30.6 pg (28-32); MEAN CORPUSCULAR VOLUME 95.5 fL (81-99); MONOCYTES % 12.9 % (4.4-11.3); NEUTROPHILS % 75.8 % (38.7-80.0); PLATELET COUNT 161 x10e3/uL (140-360); RED BLOOD COUNT 3.79 x10e6/uL (4.3-5.7)
[2022-08-07 07:04] LABS: ALBUMIN 2.2 g/dL (3.5-5.0); ALBUMIN/GLOBULIN RATIO 0.6 (0.8-2.0); ALKALINE PHOSPHATASE 70 IU/L (40-150); ANION GAP 16.3 mmol/L (8-16); BLOOD UREA NITROGEN 36 mg/dL (7-26); BUN/CREATININE RATIO 6 (6-25); CALCIUM 8.7 mg/dL (8.4-10.2); CARBON DIOXIDE 24 mmol/L (22-29); CHLORIDE 100 mmol/L (98-107); CREATININE, SERUM 6.38 mg/dL (0.72-1.25); GLUCOSE 175 mg/dL (74-118); POTASSIUM 4.3 mmol/L (3.5-5.1); SODIUM 136 mmol/L (136-145)
[2022-08-07 07:05] LABS: ALANINE AMINOTRANSFERASE < 6 IU/L (0-55)
[2022-08-07] MEDS: LACTULOSE SYRUP 20 GM/30 ML UDC RC SCH (09:00)
[2022-08-07] MEDS: LEVETIRACETAM 500MG/5ML VIAL 500 MG in SODIUM CHLORIDE 0.9% 100 ML IV SCH ×2 (09:00→20:39)
[2022-08-07] MEDS: CARVEDILOL 12.5 MG TAB PO SCH ×2 (09:00→17:27)
[2022-08-07] MEDS ORDERED: SODIUM CHLORIDE 0.9% 1000ML 1,000 ML ONE (09:31)
[2022-08-07] MEDS: MUPIROCIN 2% OINT 22 GM TUBE TOP SCH (09:35)
[2022-08-07] MEDS: BALSAM PERU/CASTOR OIL 60 GM OINT...G. TP SCH (09:35)
[2022-08-07] MEDS ORDERED: LIDOCAINE HCL 1% LOCAL INJ 20 ML VIAL ONE (09:47)
[2022-08-07] MEDS: TRIMETHOPRIM/SULFAMETHOXAZOLE 160 MG in DEXTROSE 5% 250ML 250 ML IV SCH (14:31)
[2022-08-07] MEDS: LACTULOSE SYRUP 20 GM/30 ML UDC NG SCH (17:28)
[2022-08-08] VITALS (18 sets, daily range): BP systolic 83–141; BP diastolic 56–90
[2022-08-08] MEDS: KETOROLAC TROMETHAMINE 30 MG/ML VIAL IV PRN (05:40)
[2022-08-08 06:46] LABS: HEMATOCRIT 35.7 % (38.2-49.6); HEMOGLOBIN 11.2 g/dL (14.0-18.0); MEAN CORPUSCULAR HEMOGLOBIN 29.8 pg (28-32); MEAN CORPUSCULAR VOLUME 94.9 fL (81-99); RED BLOOD COUNT 3.76 x10e6/uL (4.3-5.7)
[2022-08-08 06:47] LABS: BASOPHILS # (AUTO) 0.1 (0.0-0.1); BASOPHILS % 0.4 % (0.0-1.0); EOSINOPHILS # (AUTO) 0.4 (0.0-0.4); LYMPHOCYTES # (AUTO) 1.6 (1.0-3.2); LYMPHOCYTES % 10.8 % (18.0-39.1); MEAN CORPUSCULAR HGB CONC 31.4 g/dL (31-35); MONOCYTES # (AUTO) 1.9 (0.2-0.8); MONOCYTES % 13.1 % (4.4-11.3); NEUTROPHILS # (AUTO) 10.2 (2.1-6.9); NEUTROPHILS % 71.2 % (38.7-80.0); PLATELET COUNT 160 x10e3/uL (140-360); RED CELL DISTRIBUTION WIDTH 14.9 % (11.7-14.4)
[2022-08-08 07:08] LABS: ALBUMIN 2.2 g/dL (3.5-5.0); ALBUMIN/GLOBULIN RATIO 0.6 (0.8-2.0); ANION GAP 16.4 mmol/L (8-16); CALCIUM 8.7 mg/dL (8.4-10.2); CREATININE, SERUM 6.19 mg/dL (0.72-1.25); POTASSIUM 4.4 mmol/L (3.5-5.1)
[2022-08-08] MEDS: LACTULOSE SYRUP 20 GM/30 ML UDC NG SCH ×2 (08:03→16:06)
[2022-08-08] MEDS: LEVETIRACETAM 500MG/5ML VIAL 500 MG in SODIUM CHLORIDE 0.9% 100 ML IV SCH (08:19)
[2022-08-08] MEDS: BALSAM PERU/CASTOR OIL 60 GM OINT...G. TP SCH (08:20)
[2022-08-08] MEDS: CARVEDILOL 12.5 MG TAB PO SCH ×2 (08:20→17:59)
[2022-08-08] MEDS: MUPIROCIN 2% OINT 22 GM TUBE TOP SCH (08:20)
[2022-08-08] MEDS: ASPIRIN 81 MG ENTERIC COATED PO SCH (14:47)
[2022-08-08] MEDS: CLOPIDOGREL BISULFATE 75 MG TAB PO SCH (14:47)
[2022-08-08] MEDS: TRIMETHOPRIM/SULFAMETHOXAZOLE 160 MG in DEXTROSE 5% 250ML 250 ML IV SCH (14:47)
[2022-08-09] VITALS (44 sets, daily range): BP systolic 86–143; BP diastolic 60–99
[2022-08-09] MEDS: KETOROLAC TROMETHAMINE 30 MG/ML VIAL IV PRN ×3 (01:12→17:44)
[2022-08-09 06:45] LABS: BASOPHILS # (AUTO) 0.1 (0.0-0.1); BASOPHILS % 0.4 % (0.0-1.0); EOSINOPHILS # (AUTO) 0.5 (0.0-0.4); EOSINOPHILS % 3.5 % (0.0-6.0); HEMATOCRIT 34.8 % (38.2-49.6); HEMOGLOBIN 11.1 g/dL (14.0-18.0); LYMPHOCYTES # (AUTO) 1.7 (1.0-3.2); LYMPHOCYTES % 12.8 % (18.0-39.1); MEAN CORPUSCULAR HEMOGLOBIN 30.1 pg (28-32); MEAN CORPUSCULAR HGB CONC 31.9 g/dL (31-35); MEAN CORPUSCULAR VOLUME 94.3 fL (81-99); MONOCYTES # (AUTO) 1.7 (0.2-0.8); MONOCYTES % 12.7 % (4.4-11.3); NEUTROPHILS # (AUTO) 9.3 (2.1-6.9); NEUTROPHILS % 69.2 % (38.7-80.0); PLATELET COUNT 162 x10e3/uL (140-360); RED BLOOD COUNT 3.69 x10e6/uL (4.3-5.7); RED CELL DISTRIBUTION WIDTH 14.6 % (11.7-14.4)
[2022-08-09 07:02] LABS: ALBUMIN 2.4 g/dL (3.5-5.0); ALBUMIN/GLOBULIN RATIO 0.6 (0.8-2.0); ANION GAP 19.9 mmol/L (8-16); CALCIUM 8.8 mg/dL (8.4-10.2); CREATININE, SERUM 7.3 mg/dL (0.72-1.25); POTASSIUM 4.9 mmol/L (3.5-5.1)
[2022-08-09] MEDS: ASPIRIN 81 MG ENTERIC COATED PO SCH (08:41)
[2022-08-09] MEDS: CLOPIDOGREL BISULFATE 75 MG TAB PO SCH (08:41)
[2022-08-09] MEDS: BALSAM PERU/CASTOR OIL 60 GM OINT...G. TP SCH (08:43)
[2022-08-09] MEDS: LACTULOSE SYRUP 20 GM/30 ML UDC NG SCH ×2 (08:43→16:41)
[2022-08-09] MEDS: MUPIROCIN 2% OINT 22 GM TUBE TOP SCH (08:43)
[2022-08-09] MEDS: CARVEDILOL 12.5 MG TAB PO SCH ×2 (09:00→16:42)
[2022-08-09] MEDS ORDERED: LEVETIRACETAM 500MG/5ML VIAL 500 MG in SODIUM CHLORIDE 0.9% 100 ML IV SCH (09:00)
[2022-08-09] MEDS: TRIMETHOPRIM/SULFAMETHOXAZOLE 160 MG in DEXTROSE 5% 250ML 250 ML IV SCH (15:23)
[2022-08-09] MEDS: INSULIN REGULAR, HUMAN 100 UNIT/1 ML SQ SCH (20:12)
[2022-08-09] MEDS ORDERED: THIAMINE HCL INJ 100 MG/ML 2ML VIAL ONE (23:20)
[2022-08-09] MEDS ORDERED: SODIUM CHLORIDE 0.9% 250ML 250 ML ONE (23:22)
[2022-08-10 00:26] VITALS: BP 111/79
[2022-08-10] MEDS: KETOROLAC TROMETHAMINE 30 MG/ML VIAL IV PRN ×2 (01:19→09:35)
[2022-08-10 04:50] VITALS: BP 118/80
[2022-08-10] MEDS: INSULIN REGULAR, HUMAN 100 UNIT/1 ML SQ SCH ×2 (07:30→11:30)
[2022-08-10 07:52] VITALS: BP 133/81
[2022-08-10 08:18] LABS: BASOPHILS # (AUTO) 0.1 (0.0-0.1); BASOPHILS % 0.6 % (0.0-1.0); EOSINOPHILS # (AUTO) 0.5 (0.0-0.4); EOSINOPHILS % 3.8 % (0.0-6.0); HEMATOCRIT 38.1 % (38.2-49.6); HEMOGLOBIN 11.6 g/dL (14.0-18.0); LYMPHOCYTES # (AUTO) 1.4 (1.0-3.2); LYMPHOCYTES % 11.4 % (18.0-39.1); MEAN CORPUSCULAR HEMOGLOBIN 29.7 pg (28-32); MEAN CORPUSCULAR HGB CONC 30.4 g/dL (31-35); MEAN CORPUSCULAR VOLUME 97.4 fL (81-99); MONOCYTES # (AUTO) 1.5 (0.2-0.8); MONOCYTES % 12.9 % (4.4-11.3); NEUTROPHILS # (AUTO) 8.3 (2.1-6.9); NEUTROPHILS % 69.9 % (38.7-80.0); PLATELET COUNT 188 x10e3/uL (140-360); RED BLOOD COUNT 3.91 x10e6/uL (4.3-5.7); RED CELL DISTRIBUTION WIDTH 14.7 % (11.7-14.4)
[2022-08-10 08:55] LABS: ALBUMIN 2.7 g/dL (3.5-5.0); ALBUMIN/GLOBULIN RATIO 0.6 (0.8-2.0); ANION GAP 17.6 mmol/L (8-16); CREATININE, SERUM 6.84 mg/dL (0.72-1.25); POTASSIUM 4.6 mmol/L (3.5-5.1)
[2022-08-10] MEDS ORDERED: SODIUM CHLORIDE 0.9% IV SCH (09:00)
[2022-08-10] MEDS ORDERED: LEVETIRACETAM IV SCH (09:00)
[2022-08-10] MEDS: ASPIRIN 81 MG ENTERIC COATED PO SCH (09:20)
[2022-08-10] MEDS: CLOPIDOGREL BISULFATE 75 MG TAB PO SCH (09:20)
[2022-08-10] MEDS: LACTULOSE SYRUP 20 GM/30 ML UDC NG SCH (09:22)
[2022-08-10] MEDS: CARVEDILOL 12.5 MG TAB PO SCH (09:22)
[2022-08-10] MEDS: MUPIROCIN 2% OINT 22 GM TUBE TOP SCH (09:27)
[2022-08-10] MEDS: BALSAM PERU/CASTOR OIL 60 GM OINT...G. TP SCH (09:27)
== END 2022-08-10 15:10 | disposition home or self-care (01) | DRG 987 ==
LOC: ER 13:28 → ERHOLD 13:38 → MED/SURG3 21:48 → ICU 08-06 10:46 → MED/SURG3 08-09 22:35
PROVIDERS: ADMIT Internal Medicine; ATTEND Internal Medicine
PROC: 5A1D70Z Performance of Urinary Filtration, Intermittent, Less than 6 Hours Per Day (ICD-10-PCS; principal; 2022-07-29)
PROC: 0X6V0Z0 Detachment at Right Little Finger, Complete, Open Approach (ICD-10-PCS; 2022-07-31)
PROC: 5A09357 Assistance with Respiratory Ventilation, Less than 24 Consecutive Hours, Continuous Positive Airway Pressure (ICD-10-PCS; 2022-08-07)
DX: E87.5 Hyperkalemia (principal); A41.53 Sepsis due to Serratia; G93.41 Metabolic encephalopathy; N18.6 End stage renal disease; G92.9 Unspecified toxic encephalopathy; I12.0 Hypertensive chronic kidney disease with stage 5 chronic kidney disease or end stage renal disease; L03.113 Cellulitis of right upper limb; M86.9 Osteomyelitis, unspecified; E11.52 Type 2 diabetes mellitus with diabetic peripheral angiopathy with gangrene; I96 Gangrene, not elsewhere classified; E11.22 Type 2 diabetes mellitus with diabetic chronic kidney disease; I44.0 Atrioventricular block, first degree; I25.10 Atherosclerotic heart disease of native coronary artery without angina pectoris; E11.51 Type 2 diabetes mellitus with diabetic peripheral angiopathy without gangrene; E11.42 Type 2 diabetes mellitus with diabetic polyneuropathy; M65.841 Other synovitis and tenosynovitis, right hand; E11.69 Type 2 diabetes mellitus with other specified complication; E78.5 Hyperlipidemia, unspecified; B95.62 Methicillin resistant Staphylococcus aureus infection as the cause of diseases classified elsewhere; Z89.021 Acquired absence of right finger(s); Z99.2 Dependence on renal dialysis; Z79.4 Long term (current) use of insulin; Z79.82 Long term (current) use of aspirin; Z95.1 Presence of aortocoronary bypass graft; Z95.5 Presence of coronary angioplasty implant and graft; Z86.73 Personal history of transient ischemic attack (TIA), and cerebral infarction without residual deficits; Z79.02 Long term (current) use of antithrombotics/antiplatelets; Z89.611 Acquired absence of right leg above knee
CPT/HCPCS: 0223U; 36415; 36600; 70450; 70551; 71045; 74018; 80048; 80053; 80076; 82140; 82805; 82948; 83605; 85025; 85610; 86704; 86706; 87040; 87071; 87075; 87186; 87205; 87340; 88304; 88305; 88311; 90962; 93005; 94660; 94799; 95819; 96360; 99252; 99284; J0612; J0692; J1885; J2001; J2185; J2270; J2405; J3411; J7030; J7042; J7050; J7799